=== PATIENT | female | born 1995 | race African-American/Black ===

== ENCOUNTER 2024-10-12 13:08 | Emergency (ER) | payer OTHER ==
[~2024-10-12] VITALS: Ht 175.3 cm; Wt 680.8 kg
[2024-10-12] MEDS ORDERED: METOCLOPRAMIDE HCL 10 MG/2 ML VIAL ONE (15:07)
[2024-10-12] MEDS ORDERED: ACETAMINOPHEN 325 MG TABLET ONE (15:07)
[2024-10-12] MEDS ORDERED: ONDANSETRON HCL/PF 4 MG/2 ML VIAL ONE (15:07)
[2024-10-12 15:31] LABS: CALCIUM, SERUM 8.9 mg/dL (8.5-10.1); CREATININE 0.8 mg/dL (0.6-1.3); SODIUM SERUM 137.0 mmol/L (136-145); UREA NITROGEN, BLOOD 12.0 mg/dL (7-18)
[2024-10-12] MEDS: IV NS 0.9% 1,000 ML BAG IV ONE (15:32)
[2024-10-12] MEDS: ACETAMINOPHEN 325 MG TABLET PO ONE (15:33)
[2024-10-12] MEDS: ONDANSETRON HCL/PF 4 MG/2 ML VIAL IVP ONE (15:34)
[2024-10-12] MEDS: METOCLOPRAMIDE HCL 10 MG/2 ML VIAL IV ONE (15:35)
[2024-10-12 15:55] LABS: PLATELET COUNT (AUTO) 247 K/uL (150-450); RED BLOOD CELL COUNT(AUTO) 4.56 MIL/uL (4.0-5.2); RED CELL DISTRIBUTION WIDTH 13.0 % (11.5-15.0); WHITE BLOOD COUNT (AUTO) 7.6 K/uL (4.3-11.0)
[2024-10-12] MEDS ORDERED: METO5TAB87 PO (16:23)
[2024-10-12] MEDS ORDERED: ONDA4TAB5 PO (16:23)
[2024-10-12 16:47] VITALS: BP 113/78; TEMP 98.3; O2SAT 100
== END 2024-10-12 16:47 | disposition home or self-care (01) ==
LOC: ER 13:08
DX: R51.9 Headache, unspecified (principal); R11.0 Nausea; R42 Dizziness and giddiness; F41.9 Anxiety disorder, unspecified; J45.909 Unspecified asthma, uncomplicated; Z79.2 Long term (current) use of antibiotics; Z60.2 Problems related to living alone
CPT/HCPCS: 99285; 96374; 96361; 96375 ×2; 85025; 80048; 36415; J1200; J2765; J2405; J7030